=== PATIENT | male | born 1960 | race Caucasian/White ===

== ENCOUNTER 2022-06-28 18:41 | Emergency (ER) | payer OTHER ==
[2022-06-28] MEDS ORDERED: HYDROCODONE/APAP 10/325 TAB ONE (19:51)
[2022-06-28] MEDS ORDERED: LIDOCAINE 1% MPF 5 ML VIAL ONE (19:51)
--- NOTE | 2022-06-28 20:27 | RAD REPORT ---
EXAM DESCRIPTION: Renee Rojas Left06/28/2022 8:11 pm CLINICAL HISTORY: Left leg pain status post injury FINDINGS: No fracture is seen
--- NOTE | 2022-06-28 20:31 | RAD REPORT ---
EXAM DESCRIPTION: RAD - Femur Left - 06/28/2022 8:10 pm CLINICAL HISTORY: Left leg . FINDINGS: No fracture is seen. Small area sclerosis within the proximal femoral diaphysis nonspecific. It is recommended that the pa tient a follow up x-ray in 3 months to assess stability
--- NOTE | 2022-06-28 20:33 | RAD REPORT ---
EXAM DESCRIPTION: RAD - Foot Left 3 View - 06/28/2022 8:10 pm CLINICAL HISTORY: Left Foot pain FINDINGS: No fracture or dislocation is seen. Mild lateral subluxation fourth proximal phalanx of indeterminate age
--- NOTE | 2022-06-28 21:58 | EDPHYS ---
Physician Documentation [facility] Name: Yakov Crawford Age: 61 yrs Sex: Male : 1960 Arrival Date: 06/28/2022 Time: 18:43 Bed 19 Private MD: ED Physician Dangelo Sanchez HPI: 06/28 19:30 This 61 yrs old Male presents to ER via Wheelchair with complaints of Fall Injury, cp Laceration To Lip, Leg Injury. 19:30 Details of fall: The patient fell from an upright position, while standing. cp 19:30 Onset: The symptoms/episode began/occurred today. Associated injuries: The patient cp sustained injury to the head, laceration, of the left side lower lip, left lower leg, abrasion, hematoma, swelling, right lower leg, abrasion. 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 Historical: - Allergies: 19:02 No Known Allergies; hb - Social history:: Patient/guardian denies using alcohol, street drugs, Smoking status: Patient denies any tobacco usage or history of. ROS: 19:35 Constitutional: Negative for body aches, chills, fever, poor PO intake. cp 19:35 Eyes: Negative for injury, pain, redness, and discharge. cp 19:35 ENT: Negative for drainage from ear(s), ear pain, sore throat, difficulty swallowing, difficulty handling secretions. 19:35 Cardiovascular: Negative for chest pain. 19:35 Respiratory: Negative for cough, shortness of breath, wheezing. 19:35 Abdomen/GI: Negative for abdominal pain, nausea, vomiting, and diarrhea. 19:35 Back: Negative for pain at rest, pain with movement. 19:35 MS/extremity: Positive for abrasion, contusion, paresthesias, swelling, tenderness, of the left lower leg. 19:35 Skin: Positive for laceration(s), of the lower lip. 19:35 Neuro: Negative for altered mental status, dizziness, headache, loss of consciousness, syncope, weakness. 19:35 All other systems are negative. Exam: 19:40 Constitutional: The patient appears in no acute distress, alert, awake, cp non-diaphoretic, non-toxic, well developed, well nourished, uncomfortable. 19:40 Head/face: Noted is a laceration(s), that is deep, that is linear, of the left side cp lower lip. 19:40 Eyes: Periorbital structures: appear normal, Conjunctiva: normal, no exudate, no injection, Sclera: no appreciated abnormality, Lids and lashes: appear normal, bilaterally. 19:40 ENT: External ear(s): are unremarkable, Nose: is normal, Mouth: Lips: moist, Oral mucosa: moist, Posterior pharynx: Airway: no evidence of obstruction, patent, swelling, is not appreciated, erythema, is not appreciated, exudate, is not appreciated, Dental exam: no dental injuries noted. 19:40 Neck: C-spine: vertebral tenderness, is not appreciated, crepitus, is not appreciated, ROM/movement: is normal, is supple, without pain, no range of motions limitations, no nuchal rigidity. 19:40 Chest/axilla: Inspection: normal, Palpation: is normal, no crepitus, no tenderness. 19:40 Cardiovascular: Rate: normal, Rhythm: regular. 19:40 Respiratory: the patient does not display signs of respiratory distress, Respirations: normal, no use of accessory muscles, no retractions, labored breathing, is not present, Breath sounds: are clear throughout, no decreased breath sounds, no stridor, no wheezing. 19:40 Abdomen/GI: Inspection: abdomen appears normal, Palpation: abdomen is soft and non-tender, in all quadrants. 19:40 Back: pain, is absent, ROM is normal. 19:40 Musculoskeletal/extremity: Extremities: grossly normal except: noted in the left lower leg: abrasion, contusion, ecchymosis, swelling, tenderness, noted in the right lower leg: abrasion, ROM: limited passive range of motion due to pain, in the left knee and left ankle, Pulses: noted to be 2+ in the left dorsalis pedis artery, the left lower leg and left foot decreased sensation. 19:40 Neuro: Orientation: to person, place \T\ time. Mentation: is normal, Motor: moves all fours, strength is normal. Vital Signs: 19:01 BP 107 / 77; Pulse 86; Resp 16; Temp 98.; Pulse Ox 98% on R/A; Weight 88.45 kg; Height hb 5 ft. 9 in. (175.26 cm); Pain 7/10; 20:00 BP 113 / 78; Pulse 76; Resp 18; Pulse Ox 96% ; Pain 7/10; jj7 21:00 BP 99 / 69; Pulse 73; Resp 16; Pulse Ox 96% ; jj7 22:05 BP 103 / 68; Pulse 88; Resp 18; Pulse Ox 97% ; Pain 0/10; jj7 19:01 Body Mass Index 28.80 (88.45 kg, 175.26 cm) hb Zina Coma Score: 19:16 Eye Response: spontaneous(4). Verbal Response: oriented(5). Motor Response: obeys jj7 commands(6). Total: 15. Trauma Score (Adult): 19:16 Eye Response: spontaneous(1); Verbal Response: oriented(1); Motor Response: obeys jj7 commands(2); Systolic BP: > 89 mm Hg(4); Respiratory Rate: 10 to 29 per min(4); Zina Score: 15; Trauma Score: 12 Laceration: 21:55 Wound Repair of 2.5cm ( 1.0in ) subcutaneous laceration to lower lip. Linear shaped.. cp Distal neuro/vascular/tendon intact. Anesthesia: Local anesthetic administered with 3 mls of 1% lidocaine. Wound prep: Simple cleansing by me. Skin closed with 5 6-0 Vicryl using interrupted sutures and sterile technique. Patient tolerated well. MDM: 19:11 Patient medically screened. cp 20:00 Differential diagnosis: contusion, fracture, laceration, multiple trauma, contusion. cp 21:57 Data reviewed: vital signs, nurses notes, radiologic studies, plain films. cp 21:57 Test interpretation: by ED physician or midlevel provider: plain radiologic studies. cp Counseling: I had a detailed discussion with the patient and/or guardian regarding: the historical points, exam findings, and any diagnostic results supporting the discharge/admit diagnosis, radiology results, to return to the emergency department if symptoms worsen or persist or if there are any questions or concerns that arise at home. Response to treatment: the patient's symptoms have markedly improved after treatment. ED course: VSS. Xrays negative for fracture. Pain improved with meds. Patient informed to rest, elevate left lower leg and monitor for s/s of compartment syndrome. Return to ED for reevaluation if s/s compartment syndrome develop. Will discharge to home for continued monitoring. 06/28 19:27 Order name: XRAY Femur LEFT; Complete Time: 20:34 cp 06/28 20:35 Interpretation: Reviewed. cp 06/28 19:27 Order name: XRAY Foot LEFT 3 View; Complete Time: 20:34 cp 06/28 20:35 Interpretation: Reviewed report. cp 06/28 19:27 Order name: XRAY Tib Fib LEFT; Complete Time: 20:34 cp 06/28 20:35 Interpretation: Report reviewed. cp 06/28 19:27 Order name: Dressing - Wound cp 06/28 19:27 Order name: Gloves, Sterile; Complete Time: 19:55 cp 06/28 19:27 Order name: Setup Suture Tray; Complete Time: 19:54 cp 06/28 21:56 Order name: Ran Wrap cp 06/28 21:56 Order name: Crutches cp Administered Medications: 19:54 Drug: HYDROcodone-acetaminophen 10 mg-325 mg 1 tabs Route: PO; jj7 21:22 Drug: Lidocaine (1 %) 5 ml {Note: ADMINSITERED BY MARIAH SAINZ WOR[employer] HISTORY TEACHER.} Volume: 5 ml; Route: jj7 Infiltration; Disposition: 22:20 Co-signature as Attending Physician, Dangelo QUIÑONEZ was immediately available on-site ms3 in the Emergency Department for consultation in the care of the patient. . Disposition Summary: 06/28/22 21:58 Discharge Ordered Location: Home cp Problem: new cp Symptoms: have improved cp Condition: Stable cp Diagnosis - Laceration of lip and oral cavity without foreign body cp - Contusion of left lower leg cp - Pain in left knee cp - Pain in left ankle and joints of left foot cp Followup: cp - With: Private Physician - When: 2 - 3 days - Reason: Worsening of condition Discharge Instructions: - Discharge Summary Sheet cp - Elastic Bandage and RICE Therapy cp - Contusion cp - Acute Knee Pain, Adult cp Forms: - Medication Reconciliation Form cp - Thank You Letter cp - Antibiotic Education cp - Prescription Opioid Use cp Prescriptions: - Cephalexin 500 mg Oral Capsule - take 1 capsule by ORAL route every 6 hours for 7 days; 28 capsule; Refills: 0, cp Product Selection Permitted - Diclofenac Sodium 75 mg Oral Tablet Sustained Release - take 1 tablet by ORAL route 2 times per day; 30 tablet; Refills: 0, Product cp Selection Permitted Signatures: Dispatcher [employer] EDMS Mariah Sainz PA PA cp Baxter, Heather RN RN Dangelo Sanchez DO DO ms3 Santosh Ba RN RN jj7
--- NOTE | 2022-06-28 21:58 | ER ---
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 Coronavirus screen: At this time, the client does not indicate any symptoms associated with coronavirus-19. Ebola Screen: No symptoms or risks identified at this time. Initial Sepsis Screen: Does the patient meet any 2 criteria? No. Patient's initial sepsis screen is negative. Does the patient have a suspected source of infection? No. Patient's initial sepsis screen is negative. Risk Assessment: Do you want to hurt yourself or someone else? Patient reports no desire to harm self or others. Onset of symptoms was June 28, 2022. 19:01 Method Of Arrival: Wheelchair hb 19:01 Acuity: NELI 4 hb Triage Assessment: 19:16 General: Appears in no apparent distress. distressed, Behavior is calm, cooperative, jj7 appropriate for age. Historical: - Allergies: 19:02 No Known Allergies; hb - Social history:: Patient/guardian denies using alcohol, street drugs, Smoking status: Patient denies any tobacco usage or history of. Screenin:16 [facility] ED Fall Risk Assessment (Adult) History of falling in the last 3 months, jj7 including since admission No falls in past 3 months (0 pts) Confusion or Disorientation No (0 pts) Intoxicated or Sedated No (0 pts) Impaired Gait No (0 pts) Mobility Assist Device Used No (0 pt) Altered Elimination No (0 pt) Score/Fall Risk Level 0 - 2 = Low Risk. Humpty Dumpty Scale Fall Assessment Tool (age< 18yrs) Age. Abuse screen: Denies threats or abuse. Nutritional screening: No deficits noted. Tuberculosis screening: No symptoms or risk factors identified. 19:16 Fall Risk No fall in past 12 months (0 pts). No secondary diagnosis (0 pts). No IV (0 jj7 pts). Ambulatory Aid- None/Bed Rest/Nurse Assist (0 pts). Gait- Impaired (20 pts.). Mental Status- Oriented to own ability (0 pts). Total Garcia Fall Scale indicates No Risk (0-24 pts). Primary Survey: 19:16 NO uncontrolled hemorrhage observed. A: The client is awake and alert. The airway is jj7 patent. The client is alert. Airway: patent. Breathing/Chest: Spontaneous respiratory effort, equal unlabored respirations, breath sounds clear bilaterally, regular pattern, symmetrical chest rise and fall. Respiratory effort: spontaneous. Circulation: No external hemorrhage present. Regular and strong central pulse, skin warm/dry/normal color. Disability Client is alert. Exposure/Environment: There is no evidence of uncontrolled external bleeding. 22:32 Reassessment Alertness and Airway: Awake and alert. The airway is patent. Breathing: jj7 Spontaneous respiratory effort, equal unlabored respirations, breath sounds clear bilaterally, regular pattern with symmetrical chest rise and fall. Circulation: No external hemorrhage noted. Regular and strong central pulse, skin warm/dry/normal color. Disability: Alert. Assessment: 19:16 Pain:. Pain: Complains of pain in left heel, left lerma and anterior aspect of left jj7 ankle Derm: Wound noted Wound is LACERATION NOTED TO LEFT SIDE OF FACE RIGHT BELOW LIP. ABRASIONS NOTED TO LEFT AND RIGHT LERMA/LEG. ON LEFT ARM. Musculoskeletal: Swelling SWELLING NOTED TO LEFT LERMA AREA. 20:49 Reassessment: MARIAH PAGE AT BEDSIDE ATTEMPTING TO SUTURE LAC. PT BECOMES VERY PALE AND jj7 DIAPHORETIC DUE TO BEING AFRAID OF NEEDLES. PROCEDURE STOPPED. PT GIVEN COOL WASHCLOTH ON HIS FOREHEAD AND RESTING IN BED WITH AT BEDSIDE. WILL ATTEMPT PROCEDURE LATER. 21:10 Reassessment: MARIAH PAGE [facility] WARD CLERK AT BEDSIDE SUTURING PT. jj7 21:11 Reassessment:. jj7 Vital Signs: 19:01 BP 107 / 77; Pulse 86; Resp 16; Temp 98.; Pulse Ox 98% on R/A; Weight 88.45 kg; Height hb 5 ft. 9 in. (175.26 cm); Pain 7/10; 20:00 BP 113 / 78; Pulse 76; Resp 18; Pulse Ox 96% ; Pain 7/10; jj7 21:00 BP 99 / 69; Pulse 73; Resp 16; Pulse Ox 96% ; jj7 22:05 BP 103 / 68; Pulse 88; Resp 18; Pulse Ox 97% ; Pain 0/10; jj7 19:01 Body Mass Index 28.80 (88.45 kg, 175.26 cm) hb Zina Coma Score: 19:16 Eye Response: spontaneous(4). Verbal Response: oriented(5). Motor Response: obeys jj7 commands(6). Total: 15. Trauma Score (Adult): 19:16 Eye Response: spontaneous(1); Verbal Response: oriented(1); Motor Response: obeys jj7 commands(2); Systolic BP: > 89 mm Hg(4); Respiratory Rate: 10 to 29 per min(4); Celoron Score: 15; Trauma Score: 12 ED Course: 18:43 Patient arrived in ED. mr 19:02 Triage completed. hb 19:02 Arm band placed on. hb 19:10 Mariah Sainz PA is PHCP. cp 19:10 Dangelo Sanchez DO is Attending Physician. cp 19:13 Santosh Ba, CLAUDETTE is Primary Nurse. jj7 19:16 Patient has correct armband on for positive identification. Bed in low position. Adult jj7 w/ patient. 19:54 Assist provider with laceration repair Set up tray. jj7 20:12 XRAY Femur LEFT In Process Unspecified. EDMS 20:12 XRAY Foot LEFT 3 View In Process Unspecified. EDMS 20:12 XRAY Tib Fib LEFT In Process Unspecified. EDMS 21:13 Assist provider with laceration repair on mouth that was using sutures. Performed by jzoran MAX Patient tolerated well. 22:34 Patient did not have IV access during this emergency room visit. jj7 Administered Medications: 19:54 Drug: HYDROcodone-acetaminophen 10 mg-325 mg 1 tabs Route: PO; jj7 21:22 Drug: Lidocaine (1 %) 5 ml {Note: ADMINSITERED BY [facility]IAH SAINZ [facility] WARD CLERK.} Volume: 5 ml; Route: jj7 Infiltration; Medication: 21:15 VIS not applicable for this client. jj7 Intake: 19:16 PO: 0ml; Total: 0ml. jj7 Outcome: 21:58 Discharge ordered by . fortunato 22:31 Discharged to home ambulatory, with crutches, with significant other. jj7 22:31 Condition: improved 22:31 Discharge instructions given to patient, family, Instructed on discharge instructions, follow up and referral plans. medication usage, Demonstrated understanding of instructions, follow-up care, medications. 22:31 Prescriptions given X 2. 22:33 Patient's length of stay in the Emergency Department was greater than 2 hours. was jj7 awaiting test resultsPatient's length of stay extended due to 22:34 Patient left the ED. jj7 Signatures: Dispatcher [employer] EDCO PinoSkye Corey, Salome Bean cp, RN RN Santosh Godoy RN RN jj7
[2022-06-28 22:39] VITALS: TEMP 98
[2022-06-28 22:43] VITALS: BP 103/68; O2SAT 97
== END 2022-06-28 22:34 | disposition home or self-care (01) ==
LOC: ER 18:41
PROC: 0CQ1XZZ Repair Lower Lip, External Approach (ICD-10-PCS; principal; 2022-06-28)
DX: S01.511A Laceration without foreign body of lip, initial encounter (principal); S80.12XA Contusion of left lower leg, initial encounter; M25.572 Pain in left ankle and joints of left foot
CPT/HCPCS: 73630; 73552; 73590; 12011; J2001; 99284